=== PATIENT | male | born 1980 | race Caucasian/White ===

== ENCOUNTER 2019-08-16 09:23 | Emergency (ER) | payer OTHER, SELFPAY ==
[2019-08-16 09:25] VITALS: BP 101/69; PULSE 79; RESP 20; TEMP 36.6; O2SAT 97
[2019-08-16] MEDS: LIDOCAINE HCL 1% LOCAL INJ 20 ML VIAL 8 ML INFILTRATE (10:00)
--- NOTE | 2019-08-16 10:06 | ED.SKABFB ---
HPI - Skin/Abscess/Foreign Bdy General Chief complaint: Skin/Abscess/Foreign Body Stated complaint: splinter in hand Source: patient Mode of arrival: ambulatory Limitations: no limitations History of Present Illness HPI narrative: Patient is a 39-year-old male who presents to the emergency department with a splinter in his hand. He was using some old plywood and felt a sting and noted a splinter in his hand and went to wash his hand and realized it was fairly sizable. He tried to get it out but was unable to do so. He does state he had a tetanus shot here within the last 3-5 years. complaint: foreign body Onset (ago): minute(s) Tetanus up to date: yes Location: L hand Severity: moderate Quality: foreign body sensation Pain Consistency: constant Relieving factors: none Exacerbating factors: none Related Data Allergies Allergy/AdvReac Type Severity Reaction Status Date / Time No Known Allergies Allergy Verified 08/16/19 09:56 Review of Systems Review of Systems: All systems reviewed & are unremarkable except as noted in HPI and below PMFSH Past Medical History Medical History (Updated 08/16/19 @ 10:15 by Sunni Dejesus MD) Anxiety and depression Social History Social History (Updated 08/16/19 @ 10:09 by Sunni Dejesus MD) Smoking status: Current every day smoker Tobacco type: cigarettes Alcohol intake: current Alcohol use details: occasional Substance use: never Exam Const: General: no acute distress Eyes: Conjunctivae: conjunctivae normal Neck: Neck: normal visual inspection Chest: Chest palpation & inspection: normal inspection of the chest Skin: General skin exam: normal color Other: wound on left hand, palpable splinter Neuro: General: patient oriented x3, moves all extremities and no focal motor deficits Speech: normal speech Gait exam (Neuro): Normal gait present Other: pt has no numbnesss or weakness or pain with movement of his digits Extrem: General: normal to inspection Psych: Appearance: grossly normal Mental Status: mental status grossly normal Thought content: Yes Normal thought content present Procedures Foreign Body Removal Foreign Body #1: Foreign Body Removal Date: 08/16/19 Foreign Body Removal Time: 10:00 Time Out Performed: yes Site: left Description of foreign body: other (wood splinter) Sedation/Analgesia: none and other (local lidocaine) Technique: manual removal, removal with forceps and incision made to facilitate removal Confirmed by:: direct visualization Complications: none Post-procedure exam: awake, alert Neurovascular: normal distal pulse, normal capillary fill, distal light touch sensation intact, distal motor function normal and no signs of compartment syndrome Foreign Body Removal Narrative: splinter about 2 inches, approximately size of toothpick was removed. Discharge Plan Discharge Clinical Impression: Foreign body (FB) in soft tissue Patient Disposition: Home, Self-Care Condition: Improved Instructions: Antibiotic Form, Soft Tissue Foreign Body (ED), Puncture Wound (ED) Prescriptions: New amoxicillin-pot clavulanate [Augmentin] 875-125 mg tablet 1 tablet PO Q12H Qty: 14 RF: 0 Follow-up/Referrals: Aman,MD Tyler [Primary Care Provider] - Time of Disposition: 10:16
[2019-08-16] MEDS: NEOMYCIN/POLYMYXIN/BACITRACIN OINTMENT PACKET 1 PACKET TOPICAL (10:19)
[2019-08-16] MEDS: TETANUS,DIPHTHERIA,AC PERTUSSIS ADULT 0.5 ML (ADACEL) IM (10:26)
[2019-08-16 10:28] VITALS: BP 105/76; PULSE 84; RESP 20; TEMP 36.6; O2SAT 99
== END 2019-08-16 10:33 | disposition home or self-care (01) ==
PROVIDERS: Emergency Provider Emergency Medicine; PCP Family Medicine
DX: S60.552A Superficial foreign body of left hand, initial encounter (principal); X58.XXXA Exposure to other specified factors, initial encounter
CPT/HCPCS: 10120; 90471; 90715; 99283

== ENCOUNTER 2023-11-03 10:35 | Outpatient (CLI) | payer OTHER, SELFPAY | END 2023-11-03 10:36 | disposition home or self-care (01) | LOC: CHSAUDIO 10:41 | PROVIDERS: PCP Registered Nurse; Visit Provider Registered Nurse | DX: H93.19 Tinnitus, unspecified ear (principal); H90.3 Sensorineural hearing loss, bilateral | CPT/HCPCS: 92557; 92567 ==

== ENCOUNTER 2024-10-19 09:06 | Outpatient (CLI) | payer OTHER, SELFPAY ==
--- NOTE | ~2024-10-19 | US_ITS ---
Examination: US abdomen complete Clinical History: Abd pain . Comparison: None Technique: Complete abdominal sonography Findings: Liver: Normal size. Normal echotexture. No intrahepatic biliary ductal dilatation. Common duct: Normal caliber, 4 mm. Gallbladder: No stones. No wall thickening. No pericholecystic fluid. Spleen: Unremarkable. Pancreas: Unremarkable. Kidneys: Unremarkable. Aorta: No aneurysmal dilatation. Retrohepatic IVC: Unremarkable. IMPRESSION: 1. No acute findings. Reviewed, dictated and finalized at location R. IMPRESSION: 1. No acute findings.
== END 2024-10-19 09:07 | disposition home or self-care (01) ==
LOC: MICIMG 09:06
PROVIDERS: PCP Registered Nurse; Visit Provider Registered Nurse
DX: R10.9 Unspecified abdominal pain (principal)
CPT/HCPCS: 76700

== ENCOUNTER 2025-01-27 10:07 | Observation (INO) | payer OTHER, SELFPAY ==
[2025-01-27] VITALS (13 sets, daily range): BP systolic 108–127; BP diastolic 59–87; PULSE 67–83; RESP 16–20; TEMP 36.3–36.9; O2SAT 94–97
--- NOTE | ~2025-01-27 | CT_ITS ---
EXAMINATION: CT brain wo con DATE: 01/27/2025 11:24 INDICATION: Altered mental status TECHNIQUE: Computed tomography (CT) of the head was performed without intravenous contrast. Sagittal and coronal reconstructions were performed. The mA was adjusted according to patient size. Iterative reconstruction technique was employed. The dose-length product was 1589.00 mGy-cm. COMPARISON: head CT dated 06/10/2005 FINDINGS: There is some motion artifact on both initial and repeat images mildly limiting evaluation predominantly at the level of the cephalad cerebellum. No fracture. No acute intracranial hemorrhage, acute infarction or abnormal extra axial fluid collection. Ventricles are normal and symmetric. No mass/mass effect. Mucous retention cyst in the right sphenoid and maxillary sinuses. There is also bubbly mucus in the dependent right maxillary sinus. The orbits and mastoid air cells are normal. IMPRESSION: 1. No acute intracranial process. Evaluation mildly limited at the level of the superior cerebellum due to some motion artifact on both initial and repeat imaging. Reviewed, dictated and finalized at location A. REST ASSEMBLER IMPRESSION: 1. No acute intracranial process. Evaluation mildly limited at the level of the superior cerebellum due to some motion artifact on both initial and repeat yayo ging.
--- NOTE | ~2025-01-27 | XR_ITS ---
EXAMINATION: XR chest 1V portable DATE: 01/27/2025 15:44 INDICATION: Shortness of breath TECHNIQUE: A single frontal view of the chest was obtained. COMPARISON: None. FINDINGS: The lungs are clear. Heart size normal. No pneumothorax or subphrenic free air seen. Bones appear normal. IMPRESSION: 1. Portable chest x-ray with no focal acute process. Reviewed, dictated and finalized at location A. NEERING INTERN
--- NOTE | 2025-01-27 10:15 | PC.NURSE ---
Patient was brought with medication bottle full of different colored capsules. Patient was unable to tell RN or ERP what was inside capsules but they do not match the description of the gabapentin that is listed on the bottle. This RN wasted medication in appropriate medication disposal canister with witness of TATYANA Olvera. Patient and family is aware of waste as requested.
--- NOTE | 2025-01-27 10:16 | ECG_ITS ---
Test Date: 2025-01-27 10:25:31 Measurements Intervals [place] Rate: 81 P: 56 OH: 165 QRS: 69 QRSD: 91 T: 55 QT: 385 QTc: 449 Interpretive Statements SINUS RHYTHM INCOMPLETE RIGHT BUNDLE BRANCH BLOCK BORDERLINE ECG No previous ECG available for comparison Electronically Signed On 01-27-2025 12:10:24 [employer] by Sher Lei D.O.
--- NOTE | 2025-01-27 10:35 | PC.NURSE ---
Patient reprots he snorted some fentanyl before arrival to ED. ERP is aware, narcan ordered.
[2025-01-27] MEDS: NALOXONE HCL 0.4 MG/ML VIAL IV PUSH (10:45)
[2025-01-27] MEDS: SODIUM CHLORIDE 0.9% IV 1,000 ML 999 ML IV CONT (10:45)
--- NOTE | 2025-01-27 10:50 | PC.NURSE ---
No change in mental status post narcan administration, ERP updated. will continue to monitor.
[2025-01-27 11:04] LABS: Hematocrit 38.8 % (40.0-54.0); Hemoglobin 12.9 g/dL (14.0-18.0); Immature Granulocyte Percent A 0.4 % (0.0-0.0); Lymphocytes Absolute Auto 1.08 K/mm3 (1.10-4.50); Mean Corpuscular HGB Conc 33.2 g/dL (32-36); Mean Corpuscular Hemoglobin 30.1 pg (27.0-31.0); Mean Corpuscular Volume 90.4 fL (78.0-102.0); Nucleated Red Blood Cells Absolute Auto 0.00 K/mm3 (0.00-0.00); Nucleated Red Blood Cells Perc 0.0 % (0-0.0); Platelet Count Result 361 K/mm3 (150-420); Red Blood Count 4.29 M/mm3 (4.70-6.10); White Blood Count 6.7 K/mm3 (4.8-10.8)
[2025-01-27 11:16] LABS: Add Urine Microscopic? YES; Appearance Urine Clear (Clear); Glucose Urine UA Negative (Negative); Leukocyte Esterase Ur Negative LEU/UL (Negative); Nitrate Urine Negative (Negative); Specific Grav Ur 1.015 (1.010-1.020)
[2025-01-27 11:18] LABS: Alanine Aminotransferase 19 U/L (6-50); Albumin Level 4.7 g/dL (3.5-5.1); Alkaline Phosphatase 69 U/L (38-126); Anion Gap 10 mmol/L (4-12); Aspartate Amino Transferase 30 U/L (17-59); Bilirubin,Total 0.8 mg/dL (0.2-1.3); Blood Urea Nitrogen 12 mg/dL (9-20); Calcium 9.3 mg/dL (8.4-10.2); Carbon Dioxide 23 mmol/L (22-30); Chloride 108 mmol/L (98-107); Estimated CRCL calculation 134 ml/min; Estimated Glomerular Filt Rate > 60; Glucose 110 mg/dL (65-110); Osmolality Calculated 292 mOsm/kg (285-295); Potassium 4.1 mmol/L (3.4-5.0); Sodium 141 mmol/L (137-145); Total Protein 7.6 g/dL (6.3-8.2)
[2025-01-27 11:28] LABS: Acetaminophen < 10 ug/mL (10-30)
[2025-01-27 11:29] LABS: Creatine Kinase 89 U/L (55-170)
--- NOTE | 2025-01-27 11:30 | PC.NURSE ---
PATIENT UNABLE TO TOLERATE VITALS. HAS TAKEN OFF ALL LEADS AND PULLED AT IV LINE, FLUIDS WERE DISCONNECTED AT THIS TIME TO PREVENT IV FROM BEING PULLED OUT. PATIENT IS UNABLE TO TOLERATE BLOOD PRESSURE CUFF AND BECOMES AGITATED DURING ATTEMPT. ERP IS NOTIFIED, NO FURTHER ORDERS, WILL CONTINUE TO MONITOR.
[2025-01-27 11:34] LABS: Cannabinoid Screen Urine Negative (Negative)
[2025-01-27 11:50] LABS: Troponin I < 0.012 ng/mL (0.000-0.034)
[2025-01-27 12:03] LABS: Thyroid Stimulating Hormone Reflex 0.140 uIU/mL (0.465-4.68)
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
[2025-01-27 12:52] LABS: Free T4 Free Thyroxine Reflex 1.27 ng/dL (0.78-2.19)
--- NOTE | 2025-01-27 13:15 | PC.NURSE ---
PATIENT IS UNABLE TO TOLERATE BLOOD PRESSURE CUFF AND BECOMES AGITATED DURING ATTEMPT. ERP IS NOTIFIED, NO FURTHER ORDERS, WILL CONTINUE TO MONITOR.
--- NOTE | 2025-01-27 13:55 | PC.NURSE ---
Patient reported pain to his testicals, ERP at bedside with REINA Carter for laboratory equipment cleaner for exam.
--- NOTE | 2025-01-27 14:02 | PC.NURSE ---
Patient pulled at IV and caused it to come out. ERP is aware and states patient does not need a new one at this time. Will continue to monitor.
[2025-01-27] MEDS: KETOROLAC (*BKC) 60 MG/2 ML VIAL IM (14:08)
--- NOTE | 2025-01-27 15:20 | PC.NURSE ---
PATIENT IS UNABLE TO TOLERATE BLOOD PRESSURE CUFF AND BECOMES AGITATED DURING ATTEMPT. ERP IS NOTIFIED, NO FURTHER ORDERS, WILL CONTINUE TO MONITOR.
--- NOTE | 2025-01-27 15:27 | PC.NURSE ---
PER ERP NO IV NEEDED FOR ADMISSION
--- NOTE | 2025-01-27 16:00 | ADMGEN ---
This patient, Ketan Mac, was admitted to 2nd Floor Room 208-1. Patient/family oriented to hospital policies and general routines including ID bracelet, bed and alarms, visiting hours, pain management, procedures, bathroom and other care routines, personal items, smoking policy, room service/diet, and visiting hours. Information on how to activate the Rapid Response Team has been discussed. Patient/Family are encouraged to report perceived risks to care and to ask questions if they do not understand what they are told or what they should do.
--- NOTE | 2025-01-27 16:15 | PC.NURSE ---
pt refused antinausea med
--- NOTE | 2025-01-27 16:35 | PC.NURSE ---
pt agreed to the IM antinausea med
[2025-01-27] MEDS: PROMETHAZINE HCL 25 MG/ML AMPUL IM ×2 (16:38→21:51)
--- NOTE | 2025-01-27 17:49 | PC.NURSE ---
through out admission process pt states multiple times I'm leaving
--- NOTE | 2025-01-27 17:53 | PC.NURSE ---
been in pt multiple times to clean him up he continues to state I'm leaving and now saying someone needs to take me home
[2025-01-27] MEDS: ONDANSETRON INJ 4 MG/2 ML VIAL IM (18:36)
[2025-01-27] MEDS: PROCHLORPERAZINE EDISYLATE 10 MG/2 ML VIAL IM (18:37)
[2025-01-27] MEDS: diazePAM INJ (*CRX) 10 MG/2 ML SYRINGE IM (19:43)
--- NOTE | 2025-01-27 19:58 | PM.IMHP2 ---
H&P: HPI History of Present Illness Date/Time: 01/27/25 19:58 Chief Complaint: drug induced psychosis Narrative: Patient is a 44 year old male with PMH of substance abuse was brought to the ER today via EMS and family stated the patient took medications/drugs, reported the patient had not slept in 48 hours and has snorted cocaine and benzos. Patient had complaints of aches and pains but denied other medical complaints. Patient arrived to the ER with signed involuntary psychiatric hold documents filled out by family members, however per ER notes the patient denied suicidal ideations and was not a threat to anyone else. In the ER the patient was alert and oriented and agitated. Patient's UDS was positive for cocaine and benzos. Patient admitted to using fentanyl and was given a one time dose of Narcan per ED records with no change in mentation. Patient's labs were essentially unremarkable. Patient was still weak and patient was admitted to the medical floor for observation overnight. On arrival to the medical floor the patient was vomiting and had pulled his IV out. Patient initially refused for the nurses to give him any IM antiemetics, but did finally allow the nurses to administer IM promethazine. Patient required additional medications for nausea/vomiting including IM Compazine and IM ondansetron. Patient was finally resting but still complaining of generalized pain. Patient reports he does all the drugs. Patient is alert and oriented to self, time and place. Patient does not remember how he got to the hospital but reports he remembers taking drugs at home. Patient denies suicidal ideation, patient denies attempting to overdose, patient denies and homicidal ideations. Patient says he just wants to go home. I had a discussion with the patient about the risks of illicit drug use up to and including . Patient voices understanding and is able to comprehend the risks and relates he is not interested in quitting. Patient reports he has been to rehab in the past and has been in outpatient treatment but it has failed. Patient advised that it is recommended for him to stay in the hospital overnight for observation and ensure he is safe to discharge in the morning. Plan to have patient meet with the mental health counselor in the morning to determine if there are any treatment options the patient is agreeable to. Patient will be given 10 mg diazepam IM to help with withdrawal symptoms. Patient was talking to his mother over the phone and I spoke with her and let her know the plan would be to try to give him some sedatives to help him sleep. I let his Mom know that the patient is alert and oriented and able to make his own decisions and that the nurses could not force him to stay in the hospital, I informed his mother that the patient does not meet criteria for a 72-hour psychiatric hold as he is not a danger to himself or others during my assessment at his bedside or during the assessments done by nursing staff or the physician in the ER. Patient's mother is upset that we cannot make him stay in the hospital and she states that they are going to file complaints against all of us and the hospital. I assured the mother we are providing medical care for the patient and will treat his withdrawal symptoms as long as he consents for treatment. Review of Systems Review of Systems: All systems reviewed & are unremarkable except as noted in HPI and below PMFSH Past Medical History Medical History Anxiety and depression Social History Social History (Updated 01/27/25 @ 19:59 by Jasmin Riley RN) Smoking status: Unknown if ever smoked Tobacco type: cigarettes Alcohol intake: never Alcohol use details: occasional Substance use: current Substance use type: crack/cocaine and opiates Other substance usage details: fentanyl Lack of Transportation: No Lack of Food: Never True Current Housing: I Have Housing Concerned About Future Housing: Decline to Answer Difficulty Paying Gas/Electric Bills: Decline to Answer Difficulty Paying for Meds: Decline to Answer Currently Unemployed: Decline to Answer Education: High School Diploma/GED Difficulty w/ Childcare or Family Care: Decline to Answer Spiritual care concerns: No Meds Home Medications and Allergies Home Medications ?Medication ?Instructions ?Recorded ?Confirmed ?Type gabapentin 300 mg capsule 300 mg PO Q12H 01/27/25 01/27/25 History Allergies Allergy/AdvReac Type Severity Reaction Status Date / Time No Known Allergies Allergy Verified 01/27/25 19:57 Vital Signs Vital Signs - 24 hr 01/27/25 10:07 01/27/25 10:16 01/27/25 10:35 Temperature 97.4 F L Pulse Rate 74 78 Respiratory Rate 18 Blood Pressure 108/68 Pulse Oximetry 96 94 Oxygen Delivery Room Air 01/27/25 10:45 01/27/25 11:00 01/27/25 11:26 Temperature Pulse Rate 83 75 67 Respiratory Rate 16 19 18 Blood Pressure Pulse Oximetry Oxygen Delivery 01/27/25 11:30 01/27/25 11:45 01/27/25 12:11 Temperature Pulse Rate 68 75 78 Respiratory Rate 20 Blood Pressure Pulse Oximetry Oxygen Delivery 01/27/25 12:15 01/27/25 14:24 01/27/25 15:53 Temperature 98.4 F Pulse Rate Respiratory Rate Blood Pressure 121/87 110/59 L Pulse Oximetry Oxygen Delivery 01/27/25 16:17 Temperature 97.8 F Pulse Rate 67 Respiratory Rate 20 Blood Pressure 127/71 Pulse Oximetry 97 Oxygen Delivery Room Air Exam Const: General: no acute distress Other: alert, oriented x 4, agitated, yelling at nurses and family on phone during visit HENMT: Face/Nose/Sinus: Normal nares present Mouth: Yes moist mucous membranes Eyes: General: appearance normal, both eyes and all related structures Sclera: sclerae normal Neck: Neck: supple Resp: Effort & Inspection: normal respiratory effort Auscultation: clear to auscultation bilaterally Cardio: Rate: regular rate Rhythm: regular rhythm GI: GI Palp: Yes Soft to palpation Auscultation: normal bowel sounds Skin: General skin exam: normal color and no rashes or lesions noted Other: multiple scars noted on upper and lower extremities, no open areas Neuro: Speech: normal speech Motor exam (neuro): 5/5 motor strength present throughout Sensory Exam: normal sensation Extrem: Other: left hand edema noted, chronic per patient Psych: Mental Status: mental status grossly normal Other: agitated, yelling at times during visit at nurses and family on phone Results Labs Labs: Short CBC 01/27/25 Range/Units 11:00 WBC 6.7 (4.8-10.8) K/mm3 Hgb 12.9 L (14.0-18.0) g/dL Hct 38.8 L (40.0-54.0) % Plt Count 361 (150-420) K/mm3 [facility] 01/27/25 11:00 Sodium 141 Potassium 4.1 Chloride 108 H Carbon Dioxide 23 BUN 12 Creatinine 0.67 L Glucose 110 Calcium 9.3 Cardiac Enzymes 01/27/25 Range/Units 11:00 Total Creatine Kinase 89 (55-170) U/L Troponin I < 0.012 (0.000-0.034) ng/mL Liver Function 01/27/25 Range/Units 11:00 Total Bilirubin 0.8 (0.2-1.3) mg/dL AST 30 (17-59) U/L ALT 19 (6-50) U/L Alkaline Phosphatase 69 (38-126) U/L Albumin 4.7 (3.5-5.1) g/dL Urine 01/27/25 Range/Units 11:07 Urine Color Yellow (Yellow) Urine Appearance Clear (Clear) Urine pH 7.0 (5.0-8.0) Ur Specific [place] 1.015 (1.010-1.020) Urine Protein Trace H (Negative) Urine Glucose (UA) Negative (Negative) Quality VTE Prophylaxis VTE prophylaxis: mechanical ordered Assessment and Plan Assessment and plan (1) Drug-induced psychotic disorder: Qualifiers: Complication of substance-induced condition: with delusions Qualified Code(s): F19.950 - Other psychoactive substance use, unspecified with psychoactive substance-induced psychotic disorder with delusions Code(s): F19.959 - Other psychoactive substance use, unspecified with psychoactive substance-induced psychotic disorder, unspecified Status: Acute Assessment and Plan: patient was brought in due to polysubstance abuse and not sleeping x 48 hours patient was brought in initially with affidavits signed by family members for a psychiatric hold ER doctor determined patient did not need psychiatric hold after he was alert and oriented and patient denied suicidal or homicidal ideations patient was admitted for observation overnight sp IV fluids in ER patient reports using all types of drugs, does mention cocaine, heroin, fentanyl patient denies suicidal or homicidal ideations on arrival to nursing floor patient is alert and oriented x 4, does not remember how he got to the hospital, but remembers doing drugs at home patient yelling at nursing staff and family members over the phone patient reports generalized pain, nausea and vomiting s/p IM phenergan, IM compazine and IM zofran will give patient IM diazepam 10 mg x 1 to help with withdrawal symptoms if not effective will try IM Zyprexa telemetry monitoring ordered no IV access and ER reports they were unable to re-establish access due to scarring to upper extremities from accident as child plan for mental health evaluation in AM to determine if patient is willing to voluntarily go to inpatient rehab or psychiatric admission if he qualifies (2) Cocaine abuse: Code(s): F14.10 - Cocaine abuse, uncomplicated Status: Acute Assessment and Plan: Discussed risk of illicit drug use with patient and he understands the risks up to and including patient voices he does not have an interest in quitting or wanting help to quit at this time. Patient reports he has been to rehab and received outpatient treatment in the past but that it failed supportive treatment (3) Benzodiazepine abuse: Code(s): F13.10 - Sedative, hypnotic or anxiolytic abuse, uncomplicated Status: Acute Assessment and Plan: see above (4) Opiate addiction: Code(s): F11.20 - Opioid dependence, uncomplicated Status: Acute Assessment and Plan: see above (5) Nausea & vomiting: Code(s): R11.2 - Nausea with vomiting, unspecified Status: Acute Assessment and Plan: No IV access and unable to obtain Patient unwilling to allow attempts at IV access s/p IM phenergan, IM compazine and IM zofran patient is not vomiting or dry heaving at the time of my visit most likely caused from opiate withdrawals continue PRN IM medications for symptom relief PO fluids as tolerated for hydration Prior Studies I have reviewed the following patient records and this information was taken into consideration when formulating the assessment and plan.: previous labs and previous ER visits
--- NOTE | 2025-01-27 20:15 | PC.NURSE ---
Patient refused application of Telemetry machine as ordered by CRM COORDINATOR.
--- NOTE | 2025-01-27 20:25 | PC.NURSE ---
Patient alarm going off. Went into room and the patient was standing by the sink drinking from it, while being educated that drinking while still actively vomititing was going to cause more harm than good. Patient then told nurse that he was leaving. Made KILN HEAD HOUSE OPERATOR aware. KILN HEAD HOUSE OPERATOR ordered Zyprexa 10mg IM as a one time dose. Patient then told nurse if this does not work I will be walking out. Patient was told that we cannot keep him drugged and he stated then he will just leave. This nurse administed the IM Zyprexa as ordered. Will reevaluate patient in 30 minutes.
[2025-01-27] MEDS: OLANZapine 10 MG, WATER, STERILE FOR INJECTION 2.1 ML IM (20:51)
--- NOTE | 2025-01-27 21:00 | PC.NURSE ---
Patient resting quietly in bed at this time. Respirations even and unlabored. No s/s of distress noted.
--- NOTE | 2025-01-27 21:37 | PC.NURSE ---
Patient laying in room yelling that he can't stay here all night and toss and turn. Patient was told that he just had a medication that should help and it needs time to work. Patient stated that he is just going to leave. This nurse tried to educate the patient on the importance of letting the medication have a chance to work before making that kind of decision. His parts counterperson Lona was called on his behalf and it went to voicemail. Voicemail left to call this nurse regarding her family member.
--- NOTE | 2025-01-27 22:21 | PC.NURSE ---
Patient again educated on the importance of staying and getting treatment at this hospital but again states he is leaving. Patient states he is restless and needing more medication than what we can give him. Patient dressed in street clothes at this time. Refused to sign the AMA paperwork in front of 2 nurses. Patient escorted to lobby and awaiting a staff air tactical officer for a ride to his home.
--- NOTE | 2025-01-27 22:25 | PC.NURSE ---
Maikel WILLIAM at the ER lobby and patient went with him for a ride to his home.
--- NOTE | 2025-02-01 10:54 | PC.NURSE ---
discharge call back attempted, no answer
== END 2025-01-27 22:25 | disposition left against medical advice (07) ==
LOC: CHSED 15:15 → CHS2ND 15:36
PROVIDERS: Nurse Practitioner Adult Health; Admitting Provider Internal Medicine; Emergency Provider Emergency Medicine; PCP Registered Nurse; Visit Provider Internal Medicine
DX: F19.950 Other psychoactive substance use, unspecified with psychoactive substance-induced psychotic disorder with delusions (principal); F41.8 Other specified anxiety disorders; F14.10 Cocaine abuse, uncomplicated; F13.10 Sedative, hypnotic or anxiolytic abuse, uncomplicated; F11.20 Opioid dependence, uncomplicated; R11.2 Nausea with vomiting, unspecified
CPT/HCPCS: 36415; 70450; 71045; 80053; 80143; 80307; 80354; 81001; 82077; 82550; 83605; 84439; 84443; 84484; 85025; 93005; 96361; 96372; 96374; 99285; G0378; G0480; J0780; J1885; J2312; J2359; J2405; J2550; J3360; J7030